=== PATIENT | female | born 1955 | race Caucasian/White ===

== ENCOUNTER → 2017-02-08 | Outpatient (CLI) | payer OTHER ==
--- NOTE | 2017-02-08 14:47 | CT ---
EXAM DESCRIPTION: CT Chest with contrast (accession [id number]), Abdomen w/wo Contrast (accession [id number]) CLINICAL HISTORY: ELEVATED D DIMER COMPARISON: None Available TECHNIQUE: CT of the chest and abdomen was performed with IV contrast. No Three-D reformatted images were obtained . Pre-IV contrast images of the abdomen only were also obtained. FINDINGS: CT chest: There is no thoracic aortic aneurysm or dissection. No pulmonary arterial filling defect is seen. There is no mediastinal or hilar adenopathy. No pleural or pericardial effusion. There is no airspace consolidation or lung mass. No suspicious lung nodule is identified. No suspicious bone lesion. CT ABDOMEN: There is no abdominal aortic aneurysm or dissection. The gallbladder is surgically absent. There are no renal calculi. The liver, spleen, pancreas, kidneys and adrenals are unremarkable. No gastric wall thickening. No hiatal hernia. Visualized portions of the GI tract are unremarkable. Please note that the entire GI tract is not included on this exam. There is a large rounded but slightly irregular sclerotic lesion anteriorly in the L2 body, nonspecific. IMPRESSION: No evidence of pulmonary embolus or other abnormality to explain elevated d-dimer. Large sclerotic lesion in the L2 body, nonspecific. Differential considerations include a large bone island, calcified hemangioma or, much less likely given lack of additional bone lesions, metastatic disease. If the patient has an older exam, comparison would be helpful. Alternatively, bone scan or MRI could be performed for further evaluation. No additional bone lesion. Electronically signed by: Arthur Medrano MD 02/08/2017 2:45 PM PHOTOGRAMMETRIST
--- NOTE | 2017-02-08 14:47 | CT ---
EXAM DESCRIPTION: CT Chest with contrast (accession [id number]), Abdomen w/wo Contrast (accession [id number]) CLINICAL HISTORY: ELEVATED D DIMER COMPARISON: None Available TECHNIQUE: CT of the chest and abdomen was performed with IV contrast. No Three-D reformatted images were obtained . Pre-IV contrast images of the abdomen only were also obtained. FINDINGS: CT chest: There is no thoracic aortic aneurysm or dissection. No pulmonary arterial filling defect is seen. There is no mediastinal or hilar adenopathy. No pleural or pericardial effusion. There is no airspace consolidation or lung mass. No suspicious lung nodule is identified. No suspicious bone lesion. CT ABDOMEN: There is no abdominal aortic aneurysm or dissection. The gallbladder is surgically absent. There are no renal calculi. The liver, spleen, pancreas, kidneys and adrenals are unremarkable. No gastric wall thickening. No hiatal hernia. Visualized portions of the GI tract are unremarkable. Please note that the entire GI tract is not included on this exam. There is a large rounded but slightly irregular sclerotic lesion anteriorly in the L2 body, nonspecific. IMPRESSION: No evidence of pulmonary embolus or other abnormality to explain elevated d-dimer. Large sclerotic lesion in the L2 body, nonspecific. Differential considerations include a large bone island, calcified hemangioma or, much less likely given lack of additional bone lesions, metastatic disease. If the patient has an older exam, comparison would be helpful. Alternatively, bone scan or MRI could be performed for further evaluation. No additional bone lesion. Electronically signed by: Arthur Medrano MD 02/08/2017 2:45 PM WOOD TILE INSTALLATION HELPER
== END | disposition home or self-care (01) ==
LOC: CT 12:43
PROVIDERS: ATTEND General Practice
DX: R79.1 Abnormal coagulation profile (principal); R10.9 Unspecified abdominal pain

== ENCOUNTER → 2017-03-07 | Outpatient (CLI) | payer OTHER ==
--- NOTE | 2017-03-07 15:33 | MRI ---
EXAM DESCRIPTION: MRA Head and/or Neck CLINICAL HISTORY: 62 years Female, history of cerebral aneurysms. TECHNIQUE: 3-D [id number] noncontrasted imaging of the brain was performed. The data was reformatted into rotational MIP images of the intracranial vasculature. Bilateral anterior cerebral arteries are unremarkable. The left MCA is unremarkable. There is infundibular origin to the right anterior temporal artery. The remaining right MCA and its branches are unremarkable. The bilateral internal carotid arteries are unremarkable. Bilateral vertebral arteries and the basilar artery are unremarkable. The basilar tip is unremarkable. 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 There is infundibular origin to the right anterior temporal branch of MCA. No significant atherosclerotic narrowing on today's study. Electronically signed by: Tapan Finn MD 03/07/2017 3:31 PM CDT
--- NOTE | 2017-03-07 15:40 | MRI ---
EXAM DESCRIPTION: Lumbar Spine w/o Contrast CLINICAL HISTORY: M51.36 abnormality of the lumbar spine seen on previous CT of abdomen. COMPARISON: None Available. TECHNIQUE: MRI of the lumbar spine is performed according to our usual protocol with axial and sagittal multi sequence imaging. FINDINGS: Normal alignment of the lumbar spine is noted. There is no acute fracture or destructive osseous lesion. The conus medullaris terminates normally. Large sclerotic focus seen within the L2 vertebral body. L1-2: Unremarkable L2-3: Unremarkable L3-4: Unremarkable. L4-5: Mild 3 mm circumferential disc bulge with a more pronounced right lateral recess component. The midline diameter spinal canal is widely patent measuring 12 mm. Bilateral neuroforamen are unremarkable. L5-S1: Right far lateral disc protrusion. No posterior disc pathology. No spinal canal narrowing as the AP diameter canal measures 15 mm in diameter. Left neuroforamen is unremarkable. There is mild right neuroforaminal narrowing. IMPRESSION: 1. Today's MRI demonstrates a sclerotic focus which is again indeterminate within the L2 vertebral body. Typically, metastatic disease is solidly sclerotic. This lesion demonstrates peripheral sclerosis with central marrow signal. It is favored to be benign. Recommend follow-up in 6 months. 2. No evidence of spinal canal or neuroforaminal narrowing at any level on today's exam. 3. There is only mild degenerative disc disease at L4-5 and L5-S1. Electronically signed by: Tapan Finn MD 03/07/2017 3:39 PM CDT
--- NOTE | 2017-03-07 15:45 | MRI ---
EXAM DESCRIPTION: Brain w/oContrast CLINICAL HISTORY: CEREBRAL ANEURYSM COMPARISON: None available TECHNIQUE: Non contrast MRI of the brain is performed according to our usual protocol including multiplanar multi sequence technique. FINDINGS: No hemorrhage, mass effect, diffusion restriction, or acute infarction is present.There is normal configuration of the ventricles and sulci. The brain parenchyma and ventricles are normal. Subtle increased signal intensity noted within the midline erasmo which may be secondary to a capillary telangiectasia. No abnormal extra-axial fluid collections are present.Normal flow voids are present. The calvarium is intact. Visualized paranasal sinuses and mastoid air cells are clear. 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 This is a benign finding. The cerebrum is essentially unremarkable no evidence of mass, old infarct or acute infarct. Electronically signed by: Tapan Finn MD 03/07/2017 3:43 PM CDT
== END | disposition home or self-care (01) ==
LOC: MRI 09:05
PROVIDERS: ATTEND General Practice
DX: I67.1 Cerebral aneurysm, nonruptured (principal)